=== PATIENT | male | born 1945 | race Caucasian/White ===

== ENCOUNTER 2021-10-10 09:47 | Outpatient (CLI) | payer MEDICARE, OTHER, SELFPAY | END 2021-10-10 09:48 | disposition home or self-care (01) | LOC: WOUND 09:51 | PROVIDERS: Visit Provider Surgery | DX: E11.621 Type 2 diabetes mellitus with foot ulcer (principal); L97.512 Non-pressure chronic ulcer of other part of right foot with fat layer exposed; L97.515 Non-pressure chronic ulcer of other part of right foot with muscle involvement without evidence of necrosis | CPT/HCPCS: 11042; 99214 ==

== ENCOUNTER 2021-10-16 10:21 | Outpatient (CLI) | payer MEDICARE, OTHER, SELFPAY ==
--- NOTE | 2021-10-16 10:45 | CRLHL7_ITS ---
For Patients: As a result of the Century Cures Act, medical imaging exams and procedure reports are released immediately into your electronic medical record. You may view this report before your referring provider. If you have questions, please contact your health care provider. Examination: Right lower extremity arterial Duplex ultrasound. Indication: Nonhealing ulcers on right leg. Status post angioplasty of right superficial femoral artery and peroneal artery on 07/18/2021 Technique: The right leg arteries were examined. Ultrasound performed using real-time centeno scale imaging (B-mode 2D), color-flow Doppler and spectral analysis. Comparison: Arterial ultrasound from 07/05/2021 Findings: Triphasic waveform in common femoral artery comparison to monophasic waveform in the superficial femoral artery and persists into the popliteal artery and runoff vessels. Between the distal superficial femoral artery and popliteal artery, there is a near doubling of the velocity (108 to 211 cm/sec) suggesting a 50 percent narrowing. Monophasic flow in the runoff vessels. Impression: 1. Near doubling of velocity between distal superficial femoral artery and popliteal artery successive 50 percent narrowing. No sonographic evidence of additional site of arterial stenosis. No arterial occlusion Dictated by Sarkis Woo MD @ 10/16/2021 3:56:56 PM (Electronically Signed)
== END 2021-10-16 10:22 | disposition home or self-care (01) ==
LOC: US 10:24
PROVIDERS: PCP Internal Medicine; Visit Provider Surgery
DX: I73.9 Peripheral vascular disease, unspecified (principal); Z98.890 Other specified postprocedural states
CPT/HCPCS: 93926

== ENCOUNTER 2021-10-17 09:20 | Outpatient (CLI) | payer MEDICARE, OTHER, SELFPAY | END 2021-10-17 09:21 | disposition home or self-care (01) | PROVIDERS: PCP Internal Medicine; Visit Provider Surgery | DX: E11.621 Type 2 diabetes mellitus with foot ulcer (principal); L97.512 Non-pressure chronic ulcer of other part of right foot with fat layer exposed; L97.515 Non-pressure chronic ulcer of other part of right foot with muscle involvement without evidence of necrosis | CPT/HCPCS: 97602 ==

== ENCOUNTER 2021-10-24 09:18 | Outpatient (CLI) | payer MEDICARE, OTHER, SELFPAY | END 2021-10-24 09:19 | disposition home or self-care (01) | LOC: WOUND 09:18 | PROVIDERS: PCP Internal Medicine; Visit Provider Surgery | DX: E11.621 Type 2 diabetes mellitus with foot ulcer (principal); L97.516 Non-pressure chronic ulcer of other part of right foot with bone involvement without evidence of necrosis; L97.412 Non-pressure chronic ulcer of right heel and midfoot with fat layer exposed | CPT/HCPCS: 97597 ==

== ENCOUNTER 2021-10-31 10:00 | Outpatient (CLI) | payer MEDICARE, OTHER, SELFPAY | END 2021-10-31 10:01 | disposition home or self-care (01) | LOC: WOUND 03-12 11:18 | PROVIDERS: PCP Family Medicine; Visit Provider Surgery | DX: E11.621 Type 2 diabetes mellitus with foot ulcer (principal); L97.416 Non-pressure chronic ulcer of right heel and midfoot with bone involvement without evidence of necrosis; Z79.84 Long term (current) use of oral hypoglycemic drugs | CPT/HCPCS: 97597 ==

== ENCOUNTER 2021-11-14 09:20 | Outpatient (CLI) | payer MEDICARE, OTHER, SELFPAY ==
--- NOTE | 2021-11-14 11:00 | CRLHL7_ITS ---
For Patients: As a result of the Century Cures Act, medical imaging exams and procedure reports are released immediately into your electronic medical record. You may view this report before your referring provider. If you have questions, please contact your health care provider. INDICATION: risk of barotrauma TECHNIQUE: Chest 2 views COMPARISON: 01/23/2012 FINDINGS: Cardiovascular and mediastinum: Postop changes of CABG. Stable appearance of the central pulmonary vessels. Vascular calcifications. Lungs and pleural spaces: Lungs are mildly hyperinflated. Mild atelectasis anterior lung base. No sign of infiltrate or mass. No sign of pleural effusion. No pneumothorax. Bones and soft tissues: No significant findings. IMPRESSION: Mild obstructive pulmonary physiology. No infiltrate or edema. Dictated by Kyrie Wilder MD @ 11/14/2021 11:14:46 AM (Electronically Signed)
== END 2021-11-14 09:21 | disposition home or self-care (01) ==
PROVIDERS: PCP Internal Medicine; Visit Provider Surgery
DX: E11.621 Type 2 diabetes mellitus with foot ulcer; Z79.84 Long term (current) use of oral hypoglycemic drugs; L97.416 Non-pressure chronic ulcer of right heel and midfoot with bone involvement without evidence of necrosis; L97.511 Non-pressure chronic ulcer of other part of right foot limited to breakdown of skin
CPT/HCPCS: 11042; 71046; 87070; 87186; 97597

== ENCOUNTER 2021-11-21 13:55 | Outpatient (CLI) | payer MEDICARE, OTHER, SELFPAY | END 2021-11-21 13:56 | disposition home or self-care (01) | PROVIDERS: PCP Internal Medicine; Visit Provider Surgery | DX: E11.621 Type 2 diabetes mellitus with foot ulcer (principal); L97.416 Non-pressure chronic ulcer of right heel and midfoot with bone involvement without evidence of necrosis; L97.514 Non-pressure chronic ulcer of other part of right foot with necrosis of bone; Z79.84 Long term (current) use of oral hypoglycemic drugs | CPT/HCPCS: 97597 ==

== ENCOUNTER 2021-11-28 08:23 | Outpatient (CLI) | payer MEDICARE, OTHER, SELFPAY | END 2021-11-28 08:24 | disposition home or self-care (01) | LOC: WOUND 08:24 | PROVIDERS: PCP Internal Medicine; Visit Provider Surgery | DX: E11.621 Type 2 diabetes mellitus with foot ulcer (principal); L97.416 Non-pressure chronic ulcer of right heel and midfoot with bone involvement without evidence of necrosis; Z79.84 Long term (current) use of oral hypoglycemic drugs; L97.513 Non-pressure chronic ulcer of other part of right foot with necrosis of muscle | CPT/HCPCS: 11042; 82962; 97597; G0277 ==

== ENCOUNTER 2021-12-05 08:19 | Outpatient (CLI) | payer MEDICARE, OTHER, SELFPAY | END 2021-12-05 08:20 | disposition home or self-care (01) | PROVIDERS: PCP Internal Medicine; Visit Provider Surgery | DX: E11.621 Type 2 diabetes mellitus with foot ulcer (principal); L97.416 Non-pressure chronic ulcer of right heel and midfoot with bone involvement without evidence of necrosis | CPT/HCPCS: 82962; 99214; G0277 ==

== ENCOUNTER 2021-12-12 07:53 | Outpatient (CLI) | payer MEDICARE, OTHER, SELFPAY | END 2021-12-12 07:54 | disposition home or self-care (01) | LOC: WOUND 07:53 | PROVIDERS: PCP Internal Medicine; Visit Provider Nurse Practitioner Family | DX: E11.621 Type 2 diabetes mellitus with foot ulcer (principal); L97.416 Non-pressure chronic ulcer of right heel and midfoot with bone involvement without evidence of necrosis; L97.514 Non-pressure chronic ulcer of other part of right foot with necrosis of bone | CPT/HCPCS: 11042; 11043; 82962; G0277 ==

== ENCOUNTER 2021-12-14 14:30 | Outpatient (CLI) | payer MEDICARE, OTHER, SELFPAY | END 2021-12-14 14:31 | disposition home or self-care (01) | LOC: WOUND 03-12 14:39 | PROVIDERS: PCP Family Medicine; Visit Provider Surgery | DX: E11.621 Type 2 diabetes mellitus with foot ulcer (principal); L97.416 Non-pressure chronic ulcer of right heel and midfoot with bone involvement without evidence of necrosis | CPT/HCPCS: 29581 ==

== ENCOUNTER 2021-12-14 14:58 | Outpatient (CLI) | payer MEDICARE, OTHER, SELFPAY ==
--- NOTE | 2021-12-14 15:30 | CRLHL7_ITS ---
For Patients: As a result of the Century Cures Act, medical imaging exams and procedure reports are released immediately into your electronic medical record. You may view this report before your referring provider. If you have questions, please contact your health care provider. EXAM: MRI of the right foot without contrast. CLINICAL INDICATION: Chronic fore foot wound. PRIOR SURGERY: Partial 1st toe amputation. COMPARISON PLAIN FILMS: None available. COMPARISON CROSS-SECTIONAL IMAGING STUDIES: None available. TECHNICAL: Axial, sagittal and coronal T1, PD and STIR images. 1.5 Lizzy MR scanner. FINDINGS: Postsurgical change of 1st toe amputation through the proximal 1st metatarsal. Bone marrow edema in the residual 1st metatarsal base with grossly preserved T1 hyperintense signal. Erosion or resection of the distal aspect of the 5th proximal phalanx with T1 hypointense bone marrow signal (see series 6, image 19 and 20). Second through 5th toe hammertoe deformities. Subluxation of 2nd and 3rd MTP joints. T1 hyperintense bone marrow signal is grossly preserved throughout the remainder of the bones in the forefoot and visualized midfoot. Severe degenerative change at the tarsometatarsal joints likely neuropathic arthropathy. Mild scattered bone marrow edema at tarsometatarsal articulations due to degenerative change. Diffuse subcutaneous soft tissue swelling and induration throughout the foot. No definite organized fluid collection within limits of noncontrast exam. Atrophy of the intrinsic musculature of the foot with STIR hyperintense signal most likely due to denervation. No definite evidence of tendon injury. IMPRESSION: 1. Erosion or resection of the 5th proximal phalanx distal aspect with marrow replacement. If no prior surgery the findings would be consistent with osteomyelitis. 2. Amputation of the 1st toe through the proximal metatarsal. Reactive bone marrow edema in the residual metatarsal base with no evidence of osteomyelitis. 3. Diffuse soft tissue swelling and soft tissue induration throughout the forefoot correlate for cellulitis. No evidence of abscess within limits of noncontrast exam. 4. 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 5. The flexion deformities and subluxations in the 2nd through 5th toes. 6. Intrinsic foot muscle atrophy with edema most likely due to denervation. Dictated by Wesley Bui MD @ 12/17/2021 11:22:34 AM (Electronically Signed)
== END 2021-12-14 14:59 | disposition home or self-care (01) ==
LOC: MRI 14:59
PROVIDERS: PCP Family Medicine; Visit Provider Surgery
DX: S91.301A Unspecified open wound, right foot, initial encounter (principal); R22.41 Localized swelling, mass and lump, right lower limb
CPT/HCPCS: 29581; 73718

== ENCOUNTER 2021-12-18 08:00 | Outpatient (RCR) | payer MEDICARE, OTHER, SELFPAY | END 2021-12-24 23:59 | disposition home or self-care (01) | LOC: WOUND 08:00 | PROVIDERS: PCP Internal Medicine; Visit Provider Nurse Practitioner Family | DX: E11.621 Type 2 diabetes mellitus with foot ulcer (principal); L97.416 Non-pressure chronic ulcer of right heel and midfoot with bone involvement without evidence of necrosis; Z79.84 Long term (current) use of oral hypoglycemic drugs | CPT/HCPCS: 82962; G0277 ==

== ENCOUNTER 2021-12-19 10:55 | Outpatient (CLI) | payer MEDICARE, OTHER, SELFPAY | END 2021-12-19 10:56 | disposition home or self-care (01) | PROVIDERS: PCP Family Medicine; Visit Provider Nurse Practitioner Family | DX: E11.621 Type 2 diabetes mellitus with foot ulcer (principal); L97.416 Non-pressure chronic ulcer of right heel and midfoot with bone involvement without evidence of necrosis; Z79.84 Long term (current) use of oral hypoglycemic drugs | CPT/HCPCS: 82962; 97597; G0277 ==

== ENCOUNTER 2021-12-24 19:58 | Inpatient (IN) | payer MEDICARE, OTHER, SELFPAY ==
[2021-12-24] VITALS (16 sets, daily range): BP systolic 136–162; BP diastolic 43–79; PULSE 68–81; RESP 16–18; TEMP 35.8–36.9; O2SAT 90–100; BMI 30.8
--- NOTE | 2021-12-24 11:14 | CRLHL7_ITS ---
For Patients: As a result of the Century Cures Act, medical imaging exams and procedure reports are released immediately into your electronic medical record. You may view this report before your referring provider. If you have questions, please contact your health care provider. Indication: right transmetatarsal amputation foot Technique: Two fluoroscopic images of the right foot. Fluoroscopic time 16.4 seconds. IMPRESSION: Fluoroscopic guidance for transmetatarsal amputation. Dictated by Kyrie Wilder MD @ 12/25/2021 9:15:03 AM (Electronically Signed)
[2021-12-24] MEDS: SODIUM CHLORIDE 0.9 % (FLUSH) 10 ML SYRINGE IVF (11:30)
[2021-12-24] MEDS: LACTATED RINGERS 1000 ML 1,000 ML 100 ML IV ×2 (11:30→15:36)
[2021-12-24] MEDS: CEFAZOLIN 2 GM INJ IVP (12:10)
[2021-12-24] MEDS: BUPIVACAINE 0.5% 30 ML INJECTION (12:15)
--- NOTE | 2021-12-24 13:37 | PC.SOCIAL ---
Addendum entered by ABIMAEL Hernández 12/24/21 13:51: [facility] have no openings. [facility] in [place] may have a bed on Fri. [facility] has openings. A message was left with Yuly Huang in [facility]. Original Note: Met with pt. and spouse to answer questions about discharge planning. Pt. already has [facility] in place. Pt.'s spouse feels pt. will need more at discharge than home care and wants to pursue a SNF for short-term rehab in [place]. Explained the shortages in beds. Spouse would like any SNF in the area that has good ratings. Pt. has been to [facility] in the past. A message was left with the [facility] in [place] on bed availability. No beds are available at the [facility] or the [facility]. A message was left with [facility] on bed availability.
--- NOTE | 2021-12-24 14:26 | W.ANESCHARGE ---
Anesthesia Charges Start Date/Time Anesthesia Start Date: 12/24/21 Anesthesia Start Time: 11:58 Stop Date/Time Anesthesia Stop Date: 12/24/21 Anesthesia Stop Time: 14:23 Summary Emergency: No Extremes of Age: Over 68-CPT 68670
--- NOTE | 2021-12-24 14:29 | P.GSOP_ITS ---
Operative Note Date of procedure: 12/24/21 Type of Procedure: 1. Transmetatarsal amputation right foot Procedure Description: Preoperative diagnosis: Osteomyelitis right foot, nonhealing diabetic ulcer right foot Postoperative diagnosis: Osteomyelitis right foot, nonhealing diabetic ulcer right foot After discussing the risks and benefits of the procedure, the patient signed informed consent.? The operative site was marked and the patient was brought to the operating room and placed on the operating table in supine position.? Care was taken to pad the patient's pressure points.?? The patient was then given sedation by anesthesia and I injected 30 mL 0.5% bupivacaine plain into the foot.?? The operative site was then prepped and draped in the usual sterile fashion.? A time-out was then performed. The right foot was exsanguinated and the tourniquet inflated. Initial incision started medially proximal to the ulcer over the 1st metatarsal base. The incision was made to excise the ulceration with the dorsal arm of the incision coursing distal and then transversely across the dorsal foot ending lateral at the 5th metatarsal base. Plantar portion of the incision was taken distal and then transversely across the foot proximal the plantar ulcer meeting the other incision laterally. The ulcer was excised and the 1st metatarsal base exposed. The base was disarticulated from the medial cuneiform and removed in total and sent to pathology. The dorsal incision was taken down to bone and a a periosteal elevator was used to elevate the periosteum proximal along the metatarsal shafts to the base of metatarsals 2, 3, 4 and 5. Incision plantarly was taken to bone and the periosteum was elevated proximal on the plantar side as well. Next a sagittal saw was used to make transverse cut across metatarsals 2, 3, 4 and 5. C-arm was used for guidance on placement. The forefoot was then removed in total and discarded. Bone cuts were carefully remodeled as was the medial cuneiform and final C-arm images confirmed excellent alignment. Wound wa s irrigated with 1000 mL normal sterile saline. No necrotic tissue was evident. All exposed bone appeared healthy and viable. The tourniquet was released and all bleeding vessels cauterized. Flaps were brought together under minimal tension and sutured with 2-0 Vicryl to pull the subcutaneous tissues together. Skin was closed with combination of 2-0 and 3-0 nylon using retention sutures and simple sutures. FANY drain was placed prior to closure. Sterile dressings were then applied. Well-padded Ortho Glass posterior splint applied. ? The patient was then woken and transported to the recovery area in stable condition. The patient tolerated the procedure well. He will be admitted to the hospital for antibiotics and monitoring of blood loss. He will need transitional care placement. Findings: No complications apparent. First metatarsal base sent to pathology. Anesthesia: MAC and local Surgeon: Norberto Ewing DPM Estimated blood loss (mL): 20 Condition: stable Disposition: PACU
--- NOTE | 2021-12-24 14:34 | W.ANESCHARGE ---
Anesthesia Charges Start Date/Time Anesthesia Start Date: 12/24/21 Anesthesia Start Time: 11:58 Stop Date/Time Anesthesia Stop Date: 12/24/21 Anesthesia Stop Time: 14:23 Summary Emergency: No Extremes of Age: Over 68-CPT 23919
--- NOTE | 2021-12-24 16:59 | PM.IMHP1 ---
Hospitalist- H&P: HPI History of Present Illness Date Seen: 12/24/21 Chief complaint: surgery Narrative: Elieser Fam is a 76 year old male presented to the hospital today for a transmetatarsal foot amputation of the right foot with Dr. Ewing of podiatry, performed for osteomyelitis. There were no surgical or anesthetic complications during the procedure. Patient has a long history of foot infections/wounds, with comorbidities of type 2 diabetes and severe peripheral vascular disease. He is followed as an outpatient by our wound clinic, and has been treated in the hyperbaric chamber as well. Most recent wound culture was collected in October and was positive for Enterococcus, sensitive to ampicillin, and he has been on Augmentin recently. In July of 2021, wound culture grew out multiple organisms including E coli, Corynebacterium, and stenotrophomonas. Patient's history of CVA with resultant poor balance, in addition to significant peripheral neuropathy, will limit his ability to discharge home following procedure. He needs to be nonweightbearing on his right lower extremity. He had a previous toe amputation that required a SNF stay postoperatively. Other past medical and surgical history have been updated in tabs below. Patient and have no concerns for the hospitalist team. 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 He smoked until 2017. No concerning ETOH use. Requests Full Code status. 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 Cerebrovascular accident (CVA) due to thrombosis of left middle cerebral artery Chronic back pain COPD (chronic obstructive pulmonary disease) DDD (degenerative disc disease) Diabetes mellitus type 2, noninsulin dependent Essential hypertension GERD (gastroesophageal reflux disease) Hyperlipidemia Hypertensive heart disease without heart failure Hypertriglyceridemia NEGRA (obstructive sleep apnea) Peripheral vascular disease Surgical History (Updated 12/24/21 @ 19:29 by Chyna Reyes MD) History of coronary artery stent placement Hx of CABG S/P rotator cuff repair S/P transmetatarsal amputation of foot Social History Smoking Status: Never smoker How often do you have a drink containing alcohol: never AUDIT-C Alcohol total score: 0 Non-prescribed substance use: denies use Caffeine: Yes Meds Home Medications and Allergies Home Medications Medication Instructions Recorded Confirmed Type albuterol sulfate 90 mcg/actuation 2 puff inhalation Q4H 11/08/21 12/24/21 History aerosol inhaler ammonium lactate 12 % lotion 1 applic topical DAILY 11/08/21 12/24/21 History atorvastatin 40 mg tablet 40 mg PO DAILY 11/08/21 12/24/21 History blood sugar diagnostic (Accu-Chek #10 ea 11/08/21 12/24/21 History Elise Plus test strips) clopidogrel 75 mg tablet 75 mg PO DAILY 11/08/21 12/24/21 History collagenase clostridium histo. 250 1 applic topical DAILY 11/08/21 12/24/21 History unit/gram topical ointment (Santyl) duloxetine 20 mg capsule,delayed 20 mg PO DAILY 11/08/21 12/24/21 History release furosemide 40 mg tablet 20 mg PO DAILY 11/08/21 12/24/21 History gabapentin 100 mg capsule 100 mg PO TID 11/08/21 12/24/21 History glipizide 10 mg tablet 5 mg PO DAILY 11/08/21 12/24/21 History icosapent ethyl 1 gram capsule 2 g PO BIDWM 11/08/21 12/24/21 History losartan 25 mg tablet 25 mg PO DAILY 11/08/21 12/24/21 History metformin 500 mg tablet,extended 1,000 mg PO BIDWM 11/08/21 12/24/21 History release 24 hr metoprolol tartrate 25 mg tablet 12.5 mg PO BID 11/08/21 12/24/21 History pantoprazole 40 mg tablet,delayed 40 mg PO DAILY 11/08/21 12/24/21 History release tamsulosin 0.4 mg capsule 0.4 mg PO DAILY 11/08/21 12/24/21 History aspirin 81 mg capsule 81 mg PO DAILY 12/24/21 12/24/21 History latanoprost 0.005 % eye drops 1 drp ophthalmic (eye-right) HS 12/24/21 12/24/21 History Allergies Allergy/AdvReac Type Severity Reaction Status Date / Time lisinopril Allergy Mild Cough Verified 10/31/22 10:24 Exam Narrative: Exam Narrative: GEN: Alert and oriented, laying comfortably in bed answering questions appropriately CV: Rate controlled atrial fibrillation, no concerning murmurs R: LCTA bilaterally without concerning wheezing, rales, or rhonchi Ext: Right lower extremity is wrapped, bloody drainage is noted in postop drain Skin: Scattered SKs, no other concerning skin lesions or rashes on exposed skin Neuro: Nonfocal, no resting tremor Psych: Appropriate Const: Vital Signs, click to edit/add: Vital Signs - 24 hr 12/24/21 11:15 12/24/21 14:30 12/24/21 14:45 Temperature 97 F L 97.6 F Pulse Rate 70 69 68 Respiratory Rate 16 16 16 Blood Pressure 149/70 H 145/76 H 157/75 H Pulse Oximetry 95 92 99 Oxygen Delivery Me thod Room Air Non Rebreather Mas k Oxygen Flow Rate 2 2 12/24/21 15:00 Temperature Pulse Rate 70 Respiratory Rate 18 Blood Pressure 154/67 H Pulse Oximetry 100 Oxygen Delivery Me thod Nasal Cannula Oxygen Flow Rate 2 Assessment and Plan Assessment and plan (1) Osteomyelitis: Status: Acute Assessment and Plan: - offending bone surgically removed today - will continue IV Unasyn postoperatively, likely will be able to discharge on p.o. antibiotics given surgical treatment (2) S/P transmetatarsal amputation of foot: Problem comment: 12/24/2021 Status: Acute (3) Atrial fibrillation: Problem comment: on ASA Status: Acute Assessment and Plan: - rate controlled (4) Diabetes mellitus type 2, noninsulin dependent: Problem comment: last A1C 7.6 Status: Acute Assessment and Plan: - Accu-Cheks ordered to assess need for sliding scale insulin (5) COPD (chronic obstructive pulmonary disease): Status: Acute Assessment and Plan: - quiescent, not on supplemental oxygen (6) Peripheral vascular disease: Problem comment: on plavix Status: Acute (7) Cerebrovascular accident (CVA) due to thrombosis of left middle cerebral artery: Status: Acute Assessment and Plan: - persistently poor balance, no other focal deficits. PT and OT ordered; patient is to be not weight-bearing on right lower extremity. After 1-2 days, will be able to pivot transfer to commode and wheelchair Plan - per above - aspirin and Plavix for prophylaxis
[2021-12-24] MEDS: AMPICILLIN/SULBACTAM 3 GM in 0.9 % SODIUM CHLORIDE Mini-bag 100 ML IVPB ×2 (17:00→22:47)
[2021-12-24] MEDS: METFORMIN ER 500 MG 1000 MG PO (18:26)
[2021-12-24] MEDS: LACTOBACILLUS ACIDOPHILUS 1 TABLET 2 TAB PO (18:26)
[2021-12-24] MEDS: LATANOPROST 0.005% OPHTH 1 DROP EYE-RIGHT (21:02)
[2021-12-24] MEDS: METOPROLOL TARTRATE 25 MG TABLET 12.5 MG PO (21:02)
[2021-12-24] MEDS: ATORVASTATIN CALCIUM 40 MG TABLET PO (21:02)
[2021-12-24] MEDS: GABAPENTIN 100 MG CAPSULE PO (21:03)
--- NOTE | 2021-12-24 23:59 | PC.NURSE ---
VSS AND AFEBRILE. DRESSING TO RIGHT FOOT CDI AND ELEVATED ON 2 PILLOWS. FANY DRAIN WITH BLOODY DRAINAGE. TOLERATING REGULAR DIET WITH NO C/O N/V. PATIENT DENIES PAIN.
[2021-12-25] MEDS: MELATONIN 3 MG TABLET 6 MG PO ×2 (00:08→19:59)
[2021-12-25 03:00] VITALS: BP 97/30; PULSE 90; RESP 20; TEMP 37.4; O2SAT 90
[2021-12-25] MEDS: AMPICILLIN/SULBACTAM 3 GM in 0.9 % SODIUM CHLORIDE Mini-bag 100 ML IVPB ×4 (04:46→23:17)
--- NOTE | 2021-12-25 04:54 | PC.NURSE ---
[id number] Pt rested well during night, stood at beside x1 NWB to RLE, walker, and 1 assist, tolerated activity fair. denies Pain to RLE, helped pt repositiong throughout night, uses urinal and call light appropriately.
[2021-12-25] MEDS: OMEPRAZOLE 20 MG CAPSULE DR 40 MG PO (06:34)
[2021-12-25 07:00] VITALS: BP 141/60; PULSE 93; PULSE 97; RESP 20; TEMP 37.2; O2SAT 93
[2021-12-25 07:11] LABS: Albumin* 3.9 g/dL (3.3-5.0); Chloride* 104 mmol/L (96-114); Potassium* 4.7 mmol/L (3.6-5.1); Sodium* 140 mmol/L (135-149)
[2021-12-25 07:13] LABS: Bilirubin Total* 0.5 mg/dL (0.1-1.5); Estimated Glomerular Filt Rate 77 ml/min
[2021-12-25 07:14] LABS: Alanine Aminotransferase* 22 U/L (4-50); Alkaline Phosphatase* 80 U/L (40-150); Aspartate Amino Transferase* 23 U/L (12-35); Blood Urea Nitrogen* 23 mg/dL (7-30); Carbon Dioxide* 22 mmol/L (20-32); Total Protein* 6.6 g/dL (6.0-8.3)
[2021-12-25 07:15] LABS: Calcium* 9.3 mg/dL (8.4-10.6); Glucose* 132 mg/dL (60-115)
[2021-12-25 07:17] LABS: Basophils Absolute Auto 0.05 K/uL (0.00-0.30); Basophils Percent Auto 0.5 % (0.0-3.0); Eosinophils Absolute Auto 0.07 K/uL (0.00-0.50); Eosinophils Percent Auto 0.7 % (0.0-7.0); Hemoglobin* 12.5 gm/dL (13.5-17.5); Immature Granulocytes Abs Auto 0.06 K/uL (0.00-0.30); Lymphocytes Percent Auto 13.4 % (20-44); Mean Corpuscular HGB Conc 33 gm/dL (32-36); Mean Corpuscular Hemoglobin 28 pg (26-34); Mean Corpuscular Volume 84 fL (80-100); Monocytes Percent Auto 9.5 % (0.0-11.0); Neutrophils Percent Auto 75.3 % (42.0-72.0); Platelet Count* 294 K/uL (140-440); RDW Coefficient of Variation % 14.7 % (11.5-15.5); Red Blood Count 4.51 m/uL (4.30-5.90); White Blood Count* 10.58 K/uL (4.50-11.00)
[2021-12-25 07:18] LABS: Slide Review Reflex No
[2021-12-25] MEDS: METFORMIN ER 500 MG 1000 MG PO ×2 (08:05→19:58)
[2021-12-25] MEDS: LACTOBACILLUS ACIDOPHILUS 1 TABLET 2 TAB PO ×3 (08:05→19:55)
[2021-12-25] MEDS: glipiZIDE 5 MG TABLET PO (08:05)
[2021-12-25] MEDS: ASPIRIN 81 MG TABLET EC PO (09:12)
[2021-12-25] MEDS: TAMSULOSIN HCL 0.4 MG CAPSULE PO (09:12)
[2021-12-25] MEDS: DULOXETINE HCL 20 MG CAPSULE DR PO (09:12)
[2021-12-25] MEDS: CLOPIDOGREL 75 MG TABLET PO (09:12)
[2021-12-25] MEDS: METOPROLOL TARTRATE 25 MG TABLET 12.5 MG PO ×2 (09:12→19:56)
[2021-12-25] MEDS: LOSARTAN POTASSIUM 50 MG TABLET 25 MG PO (09:13)
[2021-12-25] MEDS: FUROSEMIDE 20 MG TABLET PO (09:14)
[2021-12-25] MEDS: GABAPENTIN 100 MG CAPSULE PO ×3 (09:14→19:59)
[2021-12-25 11:00] VITALS: BP 138/53; PULSE 93; RESP 20; TEMP 36.8; O2SAT 93
--- NOTE | 2021-12-25 12:44 | W.PM.PODPN ---
Podiatry-PN: Subj Subjective Time Seen by Provider: 12:30 Date Seen: 12/25/21 Interval history: Patient seen bedside postop day 1 following transmetatarsal amputation right foot. He is doing well without complaints. He is resting comfortably. Has no complaints of pain. He has been maintaining nonweightbearing status. Progress Note: A&P Assessment and plan (1) S/P transmetatarsal amputation of foot: Problem details: 12/24/2021 Status: Acute (2) Osteomyelitis: Status: Acute Plan S/p transmetatarsal amputation right foot postop day 1. Discussed the plan with patient and his today. Drain output is still more than I would like. Plan on removing the drain tomorrow and changing the dressing in the a.m.. I would anticipate that point he could then transferred to nursing facility. Continue nonweightbearing to the right leg. Continue antibiotics. Exam Narrative: Exam Narrative: Right foot with splint in place. Dressings are intact with no strike through. Drain in place and functioning well. Drain output last shift 50 mL. Const: Vital Signs, click to edit/add: Vital Signs - 24 hr 12/24/21 14:30 12/24/21 14:45 12/24/21 15:00 Temperature 97.6 F Pulse Rate 69 68 70 Pulse Rate [Pulse Oximeter] Respiratory Rate 16 16 18 Blood Pressure 145/76 H 157/75 H 154/67 H Blood Pressure [Le ft Arm] Blood Pressure [Ri ght Arm] Pulse Oximetry 92 99 100 Oxygen Delivery Me thod Non Rebreather Mas k Nasal Cannula Oxygen Flow Rate 2 2 2 12/24/21 16:00 12/24/21 16:15 12/24/21 16:30 Temperature 96.7 F L 96.5 F L Pulse Rate 76 Pulse Rate [Pulse Oximeter] 74 75 Respiratory Rate 18 18 18 Blood Pressure Blood Pressure [Le ft Arm] 160/68 H 162/75 H 153/74 H Blood Pressure [Ri ght Arm] Pulse Oximetry 97 96 Oxygen Delivery Me thod Room Air Room Air Oxygen Flow Rate 12/24/21 20:00 12/24/21 21:00 12/24/21 16:45 Temperature 97.5 F L 97 F L Pulse Rate Pulse Rate [Pulse Oximeter] 79 74 77 Respiratory Rate 18 18 18 Blood Pressure Blood Pressure [Le ft Arm] 157/71 H 154/76 H 158/74 H Blood Pressure [Ri ght Arm] Pulse Oximetry 96 96 96 Oxygen Delivery Me thod Room Air Room Air Room Air Oxygen Flow Rate 12/24/21 17:00 12/24/21 17:30 12/24/21 18:00 Temperature 97 F L 97.3 F L Pulse Rate Pulse Rate [Pulse Oximeter] 81 70 79 Respiratory Rate 18 18 18 Blood Pressure Blood Pressure [Le ft Arm] 136/78 156/70 H 144/78 H Blood Pressure [Ri ght Arm] Pulse Oximetry 96 96 96 Oxygen Delivery Me thod Room Air Room Air Room Air Oxygen Flow Rate 12/24/21 19:00 12/24/21 22:00 12/24/21 23:00 Temperature 97.3 F L 97.8 F 98.5 F Pulse Rate Pulse Rate [Pulse Oximeter] 80 81 79 Respiratory Rate 18 18 18 Blood Pressure Blood Pressure [Le ft Arm] 151/78 H 154/79 H Blood Pressure [Ri ght Arm] 144/43 H Pulse Oximetry 97 96 90 Oxygen Delivery Me thod Room Air Room Air Room Air Oxygen Flow Rate 12/25/21 03:00 12/25/21 07:00 12/25/21 07:00 Temperature 99.4 F 98.9 F Pulse Rate Pulse Rate [Pulse Oximeter] 90 93 97 Respiratory Rate 20 20 Blood Pressure Blood Pressure [Le ft Arm] Blood Pressure [Ri ght Arm] 97/30 L 141/60 H Pulse Oximetry 90 93 Oxygen Delivery Me thod Room Air Room Air Oxygen Flow Rate 0 12/25/21 11:00 Temperature 98.2 F Pulse Rate Pulse Rate [Pulse Oximeter] 93 Respiratory Rate 20 Blood Pressure Blood Pressure [Le ft Arm] Blood Pressure [Ri ght Arm] 138/53 L Pulse Oximetry 93 Oxygen Delivery Me thod Room Air Oxygen Flow Rate 0 Podiatry-PN: Obj Labs Labs: Laboratory Results - last 24 hr 12/25/21 12/25/21 06:02 06:02 WBC 10.58 RBC 4.51 Hgb 12.5 L Hct 38.0 MCV 84 MCH 28 MCHC 33 RDW Coeff of Braeden 14.7 Plt Count 294 Neut % (Auto) 75.3 H Lymph % (Auto) 13.4 L [place] % (Auto) 9.5 Eos % (Auto) 0.7 Baso % (Auto) 0.5 Neut # (Auto) 8.00 H Lymph # (Auto) 1.40 [place] # (Auto) 1.00 H Eos # (Auto) 0.07 Baso # (Auto) 0.05 Abs Immat Gran (auto) 0.06 Sodium 140 Potassium 4.7 Chloride 104 Carbon Dioxide 22 BUN 23 Creatinine 1.0 Estimated Creat Clear 58.90 Estimated GFR 77 Glucose 132 H Calcium 9.3 Total Bilirubin 0.5 AST 23 ALT 22 Alkaline Phosphatase 80 C-Reactive Protein 3.0 H Total Protein 6.6 Albumin 3.9
--- NOTE | 2021-12-25 13:31 | PC.SOCIAL ---
Pt. has been accepted to [facility] for tomorrow. [facility] transport is set up for 1pm admit. Pt. is pleased with this plan.
--- NOTE | 2021-12-25 13:57 | P.IMPN_ITS ---
Progress Note: A&P Assessment and plan (1) S/P transmetatarsal amputation of foot: Problem details: 12/24/2021 Status: Acute Assessment and Plan: - doing well, plans for SNF upon discharge. Will need to have drain taken out by Dr. Ewing prior to d/c (this can be removed when <30mL output in 24 hours) (2) Osteomyelitis: Status: Acute Assessment and Plan: - continue Unasyn while inpatient, will transition to po antibiotics upon discharge given surgical resolution of osteomyelitis (3) Diabetes mellitus type 2, noninsulin dependent: Problem details: last A1C 7.6 Status: Acute Assessment and Plan: - continue Accu-Cheks and sliding scale insulin, as well as home medications (4) Atrial fibrillation: Problem details: Paroxysmal, on ASA Status: Acute Assessment and Plan: - quiescent, sinus rhythm (5) COPD (chronic obstructive pulmonary disease): Status: Acute Assessment and Plan: - quiescent (6) Peripheral vascular disease: Problem details: on plavix Status: Acute Assessment and Plan: - baseline (7) Cerebrovascular accident (CVA) due to thrombosis of left middle cerebral artery: Status: Acute Assessment and Plan: - residual deficit of poor balance, working with therapies Plan - per above Subjective Date Seen: 12/25/21 Interval history: No acute events overnight. Patient and no concerns for hospitalist team this morning. Exam Narrative: Exam Narrative: GEN: Alert and oriented, sitting comfortably in bedside chair and speaking in full sentences HEENT: Normal external ears, EOMIs bilaterally CV: Regular rate and rhythm, not in AFib during my exam, No concerning murmurs, rubs, or gallops R: LCTA bilaterally without concerning wheezing, rales, or rhonchi Ext: Right lower extremity is wrapped, bloody fluid without concerning features noted in drain Skin: No concerning skin lesions or rashes on exposed skin Neuro: Nonfocal Psych: Appropriate Const: Vital Signs, click to edit/add: Vital Signs - 24 hr 12/24/21 14:30 12/24/21 14:45 12/24/21 15:00 Temperature 97.6 F Pulse Rate 69 68 70 Pulse Rate [Pulse Oximeter] Respiratory Rate 16 16 18 Blood Pressure 145/76 H 157/75 H 154/67 H Blood Pressure [Le ft Arm] Blood Pressure [Ri ght Arm] Pulse Oximetry 92 99 100 Oxygen Delivery Me thod Non Rebreather Mas k Nasal Cannula Oxygen Flow Rate 2 2 2 12/24/21 16:00 12/24/21 16:15 12/24/21 16:30 Temperature 96.7 F L 96.5 F L Pulse Rate 76 Pulse Rate [Pulse Oximeter] 74 75 Respiratory Rate 18 18 18 Blood Pressure Blood Pressure [Le ft Arm] 160/68 H 162/75 H 153/74 H Blood Pressure [Ri ght Arm] Pulse Oximetry 97 96 Oxygen Delivery Me thod Room Air Room Air Oxygen Flow Rate 12/24/21 20:00 12/24/21 21:00 12/24/21 16:45 Temperature 97.5 F L 97 F L Pulse Rate Pulse Rate [Pulse Oximeter] 79 74 77 Respiratory Rate 18 18 18 Blood Pressure Blood Pressure [Le ft Arm] 157/71 H 154/76 H 158/74 H Blood Pressure [Ri ght Arm] Pulse Oximetry 96 96 96 Oxygen Delivery Me thod Room Air Room Air Room Air Oxygen Flow Rate 12/24/21 17:00 12/24/21 17:30 12/24/21 18:00 Temperature 97 F L 97.3 F L Pulse Rate Pulse Rate [Pulse Oximeter] 81 70 79 Respiratory Rate 18 18 18 Blood Pressure Blood Pressure [Le ft Arm] 136/78 156/70 H 144/78 H Blood Pressure [Ri ght Arm] Pulse Oximetry 96 96 96 Oxygen Delivery Me thod Room Air Room Air Room Air Oxygen Flow Rate 12/24/21 19:00 12/24/21 22:00 12/24/21 23:00 Temperature 97.3 F L 97.8 F 98.5 F Pulse Rate Pulse Rate [Pulse Oximeter] 80 81 79 Respiratory Rate 18 18 18 Blood Pressure Blood Pressure [Le ft Arm] 151/78 H 154/79 H Blood Pressure [Ri ght Arm] 144/43 H Pulse Oximetry 97 96 90 Oxygen Delivery Me thod Room Air Room Air Room Air Oxygen Flow Rate 12/25/21 03:00 12/25/21 07:00 12/25/21 07:00 Temperature 99.4 F 98.9 F Pulse Rate Pulse Rate [Pulse Oximeter] 90 93 97 Respiratory Rate 20 20 Blood Pressure Blood Pressure [Le ft Arm] Blood Pressure [Ri ght Arm] 97/30 L 141/60 H Pulse Oximetry 90 93 Oxygen Delivery Me thod Room Air Room Air Oxygen Flow Rate 0 12/25/21 11:00 Temperature 98.2 F Pulse Rate Pulse Rate [Pulse Oximeter] 93 Respiratory Rate 20 Blood Pressure Blood Pressure [Le ft Arm] Blood Pressure [Ri ght Arm] 138/53 L Pulse Oximetry 93 Oxygen Delivery Me thod Room Air Oxygen Flow Rate 0 Labs Labs: Laboratory Results - last 24 hr 12/25/21 12/25/21 06:02 06:02 WBC 10.58 RBC 4.51 Hgb 12.5 L Hct 38.0 MCV 84 MCH 28 MCHC 33 RDW Coeff of Braeden 14.7 Plt Count 294 Neut % (Auto) 75.3 H Lymph % (Auto) 13.4 L [place] % (Auto) 9.5 Eos % (Auto) 0.7 Baso % (Auto) 0.5 Neut # (Auto) 8.00 H Lymph # (Auto) 1.40 [place] # (Auto) 1.00 H Eos # (Auto) 0.07 Baso # (Auto) 0.05 Abs Immat Gran (auto) 0.06 Sodium 140 Potassium 4.7 Chloride 104 Carbon Dioxide 22 BUN 23 Creatinine 1.0 Estimated Creat Clear 58.90 Estimated GFR 77 Glucose 132 H Calcium 9.3 Total Bilirubin 0.5 AST 23 ALT 22 Alkaline Phosphatase 80 C-Reactive Protein 3.0 H Total Protein 6.6 Albumin 3.9
[2021-12-25 15:00] VITALS: BP 136/54; PULSE 88; RESP 18; TEMP 37.1; O2SAT 91
[2021-12-25 19:00] VITALS: BP 144/71; PULSE 88; RESP 18; TEMP 37.1; O2SAT 91
[2021-12-25] MEDS: ATORVASTATIN CALCIUM 40 MG TABLET PO (19:57)
[2021-12-25] MEDS: LATANOPROST 0.005% OPHTH 1 DROP EYE-RIGHT (20:09)
[2021-12-25 23:00] VITALS: BP 146/63; PULSE 86; RESP 20; TEMP 36.8; O2SAT 90
[2021-12-26 02:46] VITALS: BP 137/35; PULSE 80; RESP 20; TEMP 36.8; O2SAT 89
[2021-12-26] MEDS: AMPICILLIN/SULBACTAM 3 GM in 0.9 % SODIUM CHLORIDE Mini-bag 100 ML IVPB (05:08)
--- NOTE | 2021-12-26 05:27 | PC.NURSE ---
[id number] Pt slept well during night, denied pain. FANY drain output total for noc shift is 15ml. dressing to RLE, C/D/I.
[2021-12-26 06:23] LABS: Basophils Absolute Auto 0.06 K/uL (0.00-0.30); Basophils Percent Auto 0.6 % (0.0-3.0); Hematocrit 35.9 % (37.0-53.0); Hemoglobin* 11.9 gm/dL (13.5-17.5); Immature Granulocytes Abs Auto 0.06 K/uL (0.00-0.30); Lymphocytes Percent Auto 18.4 % (20-44); Mean Corpuscular HGB Conc 33 gm/dL (32-36); Mean Corpuscular Hemoglobin 28 pg (26-34); Mean Corpuscular Volume 84 fL (80-100); Monocytes Percent Auto 10.7 % (0.0-11.0); Neutrophils Absolute Auto 7.08 K/uL (1.7-7.0); Neutrophils Percent Auto 68.7 % (42.0-72.0); Platelet Count* 287 K/uL (140-440); RDW Coefficient of Variation % 14.7 % (11.5-15.5); Red Blood Count 4.28 m/uL (4.30-5.90); White Blood Count* 10.29 K/uL (4.50-11.00)
[2021-12-26] MEDS: OMEPRAZOLE 20 MG CAPSULE DR 40 MG PO (06:30)
[2021-12-26 06:33] LABS: Slide Review Reflex No
[2021-12-26 06:36] LABS: Chloride* 103 mmol/L (96-114); Sodium* 139 mmol/L (135-149)
[2021-12-26 06:39] LABS: Blood Urea Nitrogen* 21 mg/dL (7-30); Carbon Dioxide* 26 mmol/L (20-32); Creatinine* 1.1 mg/dL (0.5-1.5); Est. Creatinine Clearance* 53.55; Estimated Glomerular Filt Rate 69 ml/min
[2021-12-26 06:40] LABS: Calcium* 9.2 mg/dL (8.4-10.6); Glucose* 142 mg/dL (60-115)
--- NOTE | 2021-12-26 06:59 | W.PM.PODPN ---
Podiatry-PN: Subj Subjective Time Seen by Provider: 06:45 Date Seen: 12/26/21 Interval history: Patient seen bedside with no complaints. No acute events overnight. Progress Note: A&P Assessment and plan (1) S/P transmetatarsal amputation of foot: Problem details: 12/24/2021 Status: Acute (2) Osteomyelitis: Status: Acute Plan Following dressing removal FANY drain was removed. It only had 15 mL out overnight. Sterile dressing was reapplied with posterior splint. I discussed the plan with Elieser. Currently if he is discharged to a TCU in the area the [facility] is planning on hyperbaric oxygen treatment on this week provided he as transportation. From my standpoint discharge to TCU today is reasonable. Discharge instructions are as follows: 1. Heel weight-bearing in splint for transfers only otherwise wheelchair for ambulation 2. Continue to elevate the right leg most of the day and try to avoid extended periods of dangling in a dependent position. 3. Dressings can remain intact and does not need to be changed by TCU. Keep clean and dry. 4. Recommend Augmentin 875mg b.i.d. for 14 days upon discharge. 5. Follow-up with Dr. Ewing at [facility] in [place] on Friday or Friday of next week. Appointment has likely already been made. Exam Narrative: Exam Narrative: Dressing removed. Incision is clean dry and well coapted. There is no drainage. No signs of infection. Minimal edema. No bleeding with removal of drain. Dorsal plantar flaps of excellent capillary fill time appeared viable without all areas. Const: Vital Signs, click to edit/add: Vital Signs - 24 hr 12/25/21 07:00 12/25/21 07:00 12/25/21 11:00 Temperature 98.9 F 98.2 F Pulse Rate [Pulse Oximeter] 93 97 93 Respiratory Rate 20 20 Blood Pressure [Le ft Arm] Blood Pressure [Ri ght Arm] 141/60 H 138/53 L Pulse Oximetry 93 93 Oxygen Delivery Me thod Room Air Room Air Oxygen Flow Rate 0 0 12/25/21 15:00 12/25/21 15:00 12/25/21 19:00 Temperature 98.7 F 98.7 F Pulse Rate [Pulse Oximeter] 88 88 88 Respiratory Rate 18 18 18 Blood Pressure [Le ft Arm] Blood Pressure [Ri ght Arm] 136/54 L 144/71 H Pulse Oximetry 91 91 Oxygen Delivery Me thod Room Air Room Air Oxygen Flow Rate 0 0 12/25/21 23:00 12/25/21 23:00 12/26/21 02:46 Temperature 98.3 F 98.3 F Pulse Rate [Pulse Oximeter] 86 86 80 Respiratory Rate 20 20 20 Blood Pressure [Le ft Arm] 146/63 H Blood Pressure [Ri ght Arm] 137/35 L Pulse Oximetry 90 89 Oxygen Delivery Me thod Room Air Room Air Oxygen Flow Rate 0 Podiatry-PN: Obj Labs Labs: Laboratory Results - last 24 hr 12/25/21 12/25/21 12/26/21 06:02 06:02 05:36 WBC 10.58 10.29 RBC 4.51 4.28 L Hgb 12.5 L 11.9 L Hct 38.0 35.9 L MCV 84 84 MCH 28 28 MCHC 33 33 RDW Coeff of Braeden 14.7 14.7 Plt Count 294 287 Neut % (Auto) 75.3 H 68.7 Lymph % (Auto) 13.4 L 18.4 L [place] % (Auto) 9.5 10.7 Eos % (Auto) 0.7 1.0 Baso % (Auto) 0.5 0.6 Neut # (Auto) 8.00 H 7.08 H Lymph # (Auto) 1.40 1.90 [place] # (Auto) 1.00 H 1.10 H Eos # (Auto) 0.07 0.10 Baso # (Auto) 0.05 0.06 Abs Immat Gran (auto) 0.06 0.06 Sodium 140 Potassium 4.7 Chloride 104 Carbon Dioxide 22 BUN 23 Creatinine 1.0 Estimated Creat Clear 58.90 Estimated GFR 77 Glucose 132 H Calcium 9.3 Total Bilirubin 0.5 AST 23 ALT 22 Alkaline Phosphatase 80 C-Reactive Protein 3.0 H Total Protein 6.6 Albumin 3.9
[2021-12-26 07:00] VITALS: BP 154/68; PULSE 91; RESP 20; TEMP 36.6; O2SAT 91
[2021-12-26] MEDS: LACTOBACILLUS ACIDOPHILUS 1 TABLET 2 TAB PO (08:16)
[2021-12-26] MEDS: METFORMIN ER 500 MG 1000 MG PO (08:16)
[2021-12-26] MEDS: glipiZIDE 5 MG TABLET PO (08:16)
[2021-12-26] MEDS: CLOPIDOGREL 75 MG TABLET PO (08:24)
[2021-12-26] MEDS: ASPIRIN 81 MG TABLET EC PO (08:24)
[2021-12-26] MEDS: FUROSEMIDE 20 MG TABLET PO (08:24)
[2021-12-26] MEDS: METOPROLOL TARTRATE 25 MG TABLET 12.5 MG PO (08:24)
[2021-12-26] MEDS: TAMSULOSIN HCL 0.4 MG CAPSULE PO (08:24)
[2021-12-26] MEDS: DULOXETINE HCL 20 MG CAPSULE DR PO (08:24)
[2021-12-26] MEDS: GABAPENTIN 100 MG CAPSULE PO (08:25)
[2021-12-26] MEDS: LOSARTAN POTASSIUM 50 MG TABLET 25 MG PO (08:25)
--- NOTE | 2021-12-26 09:37 | PC.NURSE ---
Meg called to [employer] [phone]) at [phone].
[2021-12-26 09:40] VITALS: BP 154/68; PULSE 91; RESP 18; TEMP 36.6
--- NOTE | 2021-12-26 11:02 | P.DS_ITS ---
DS: Providers Provider Time Seen by Provider: 09:00 Date Seen: 12/26/21 Date of admission: 12/24/21 19:58 Primary care physician: Austyn Adrian MD Admitting Clinician: Norberto Ewing DPM Consults: 12/24/21 10:40 Consult to Physical Therapy [CONS] Routine Comment: Reason(s) for PT Consult:: Evaluate and Treat Any Restrictions?:: Non Wt Bearing Comment: NWB right leg. Heel weight for transfers Consult to Water Pollution Control Inspector [CONS] Routine Comment: Reason for Consult:: Social Service Consult 12/24/21 19:46 Consult to Occupational Therapy [CONS] Routine Comment: Reason(s) for OT Consult:: Evaluate and Treat Any Restrictions?:: Partial Wt Bearing Comment: non weight bearing on RLE, h/o CVA Attending Physician on discharge: Kristy Guadalupe MD Date of Discharge: 12/26/21 DS: Diagnosis Discharge Diagnosis (1) S/P transmetatarsal amputation of foot: Status: Acute Problem details: 12/24/2021 (2) Osteomyelitis: Status: Acute (3) Infected wound: Status: Acute (4) Cerebrovascular accident (CVA) due to thrombosis of left middle cerebral artery: Status: Chronic (5) Chronic wound of extremity: Status: Chronic (6) Peripheral vascular disease: Status: Chronic Problem details: on plavix (7) COPD (chronic obstructive pulmonary disease): Status: Chronic (8) Atrial fibrillation: Status: Chronic Problem details: Paroxysmal, on ASA (9) Diabetes mellitus type 2, noninsulin dependent: Status: Chronic Problem details: last A1C 7.6 (10) History of hyperbaric oxygen therapy: Status: Chronic (11) At risk for barotrauma due to hyperbaric oxygen therapy: Status: Acute DS: Summary Hospital Course Hospital Course: This is a 76-year-old male who had a transmetatarsal right foot amputation by Dr. Ewing of Podiatry for osteomyelitis. He has had a long history of foot infections and chronic wounds due to comorbidities type 2 diabetes and severe peripheral vascular disease. He has been followed as an outpatient by the wound clinic and treated in the hyperbaric chamber as well. Previous wound cultures have grown out E coli, Corynebacterium, stenotrophomonas, and most recently Enterococcus which was sensitive to ampicillin. He also has a history of CVA which has resulted in poor balance, limiting his ability discharge home. He had a drain postoperatively which was removed today. He has had no intraoperative or postoperative complications. He is doing well and in stable condition today for discharge. I discussed code status with him today and he would like to be a full code. He is discharged to [address] [place] [address] for rehab. Time Spent with Patient Time attestation: Total time spent providing and/or coordinating discharge services: Exam Narrative: Exam Narrative: General: No acute distress. Awake, alert, oriented x3. No pallor. No jaundice. Oropharynx: Clear. Mucous membranes moist. Cardiovascular: Regular rate and rhythm. No murmurs, gallops, or rubs. Respiratory: No respiratory distress. Clear to auscultation bilaterally. No wheezes or crackles. Abdomen: Bowel sounds present. Soft, nondistended, nontender. Extremities: No pedal edema. Right foot is status post partial amputation. Bandages are clean, dry and intact. Drain was pulled this morning is not present on my exam. Const: Vital Signs, click to edit/add: Vital Signs - 24 hr 12/25/21 15:00 12/25/21 15:00 12/25/21 19:00 Temperature 98.7 F 98.7 F Pulse Rate Pulse Rate [Pulse Oximeter] 88 88 88 Respiratory Rate 18 18 18 Blood Pressure Blood Pressure [Le ft Arm] Blood Pressure [Ri ght Arm] 136/54 L 144/71 H Pulse Oximetry 91 91 Oxygen Delivery Me thod Room Air Room Air Oxygen Flow Rate 0 0 12/25/21 23:00 12/25/21 23:00 12/26/21 02:46 Temperature 98.3 F 98.3 F Pulse Rate Pulse Rate [Pulse Oximeter] 86 86 80 Respiratory Rate 20 20 20 Blood Pressure Blood Pressure [Le ft Arm] 146/63 H Blood Pressure [Ri ght Arm] 137/35 L Pulse Oximetry 90 89 Oxygen Delivery Me thod Room Air Room Air Oxygen Flow Rate 0 12/26/21 07:00 12/26/21 07:00 12/26/21 09:40 Temperature 97.9 F 97.9 F Pulse Rate 91 Pulse Rate [Pulse Oximeter] 91 91 Respiratory Rate 20 20 18 Blood Pressure 154/68 H Blood Pressure [Le ft Arm] Blood Pressure [Ri ght Arm] 154/68 H Pulse Oximetry 91 Oxygen Delivery Me thod Room Air Oxygen Flow Rate 0 DS: Data Data Completed and Pending Completed studies during hospitalization: Ordering Physician: Anna Anderson M.D. Date of Service: 12/14/21 Procedure(s): foot RT wo con Accession Number(s): [id number] cc: Austyn Adrian M.D.; Anna Anderson M.D.~ For Patients: As a result of the Cures Act, medical imaging exams and procedure reports are released immediately into your electronic medical record. You may view this report before your referring provider. If you have questions, please contact your health care provider. EXAM: MRI of the right foot without contrast. CLINICAL INDICATION: Chronic fore foot wound. PRIOR SURGERY: Partial 1st toe amputation. COMPARISON PLAIN FILMS: None available. COMPARISON CROSS-SECTIONAL IMAGING STUDIES: None available. TECHNICAL: Axial, sagittal and coronal T1, PD and STIR images. 1.5 Lizzy MR scanner. FINDINGS: Postsurgical change of 1st toe amputation through the proximal 1st metatarsal. Bone marrow edema in the residual 1st metatarsal base with grossly preserved T1 hyperintense signal. Erosion or resection of the distal aspect of the 5th proximal phalanx with T1 hypointense bone marrow signal (see series 6, image 19 and 20). Second through 5th toe hammertoe deformities. Subluxation of 2nd and 3rd MTP joints. T1 hyperintense bone marrow signal is grossly preserved throughout the remainder of the bones in the forefoot and visualized midfoot. Severe degenerative change at the tarsometatarsal joints likely neuropathic arthropathy. Mild scattered bone marrow edema at tarsometatarsal articulations due to degenerative change. Diffuse subcutaneous soft tissue swelling and induration throughout the foot. No definite organized fluid collection within limits of noncontrast exam. Atrophy of the intrinsic musculature of the foot with STIR hyperintense signal most likely due to denervation. No definite evidence of tendon injury. IMPRESSION: 1. Erosion or resection of the 5th proximal phalanx distal aspect with marrow replacement. If no prior surgery the findings would be consistent with osteomyelitis. 2. Amputation of the 1st toe through the proximal metatarsal. Reactive bone marrow edema in the residual metatarsal base with no evidence of osteomyelitis. 3. Diffuse soft tissue swelling and soft tissue induration throughout the forefoot correlate for cellulitis. No evidence of abscess within limits of noncontrast exam. 4. 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 5. The flexion deformities and subluxations in the 2nd through 5th toes. 6. Intrinsic foot muscle atrophy with edema most likely due to denervation. Dictated by Wesley Bui MD @ 12/17/2021 11:22:34 AM (Electronically Signed) Ordering Physician: Norberto Ewing D.P.M. Date of Service: 12/24/21 Procedure(s): XR foot RT 2V Accession Number(s): [id number] cc: Austyn Adrian M.D.; Norberto Ewing D.P.M.~ For Patients: As a result of the Century Cures Act, medical imaging exams and procedure reports are released immediately into your electronic medical record. You may view this report before your referring provider. If you have questions, please contact your health care provider. Indication: right transmetatarsal amputation foot Technique: Two fluoroscopic images of the right foot. Fluoroscopic time 16.4 seconds. IMPRESSION: Fluoroscopic guidance for transmetatarsal amputation. Dictated by Kyrie Wilder MD @ 12/25/2021 9:15:03 AM (Electronically Signed) Labs on day of discharge: Labs from last 24 hours 12/26/21 12/26/21 05:36 05:36 WBC 10.29 RBC 4.28 L Hgb 11.9 L Hct 35.9 L MCV 84 MCH 28 MCHC 33 RDW Coeff of Braeden 14.7 Plt Count 287 Neut % (Auto) 68.7 Lymph % (Auto) 18.4 L [place] % (Auto) 10.7 Eos % (Auto) 1.0 Baso % (Auto) 0.6 Neut # (Auto) 7.08 H Lymph # (Auto) 1.90 [place] # (Auto) 1.10 H Eos # (Auto) 0.10 Baso # (Auto) 0.06 Abs Immat Gran (auto) 0.06 Imm/Tot Granulo (auto) Pending Sodium 139 Potassium 4.0 Chloride 103 Carbon Dioxide 26 BUN 21 Creatinine 1.1 Estimated Creat Clear 53.55 Estimated GFR 69 Glucose 142 H Calcium 9.2 Discharge Plan Discharge Disposition: Xfer Other Date of Admission: 12/24/21 19:58 Attending Provider on Discharge: Kristy Guadalupe Consulting Providers: Norberto Ewing Primary Care Provider: Austyn Adrian Condition: Improved Anticipated Discharge Date/Time: 12/26/21 13:00 Discharge Medications: New insulin aspart U-100 [Novolog Flexpen U-100 Insulin] 100 unit/mL (3 mL) Insulin Pen See Rx Instructions .ROUTE .COMPLEX Qty: 15 0RF Rx Instructions: Blood Glucose 150 or less No coverage Blood Glucose 151-200 1 unit Blood Glucose 201-250 2 units Blood Glucose 251-300 3 units Blood Glucose 301-350 4 units Blood Glucose 351 to 400 5 units Blood Glucose 401 and greater 6 units and recheck in 1 hour Lactobacillus acidophilus 0.5 mg (100 million cell) Tablet 1 mg PO TIDWM Qty: 90 0RF oxycodone 5 mg Tablet 2.5 - 5 mg PO Q4H MDD 20 mg PRN (Reason: Pain) Qty: 10 0RF amoxicillin-pot clavulanate 875-125 mg tablet 1 tab PO BID Qty: 14 0RF Continued glipizide 10 mg tablet 5 mg PO DAILY Label Comments: TAKE ONE-HALF TABLET BY MOUTH EVERY DAY ammonium lactate 12 % lotion 1 applic topical DAILY Label Comments: APPLY TO FEET ONCE DAILY atorvastatin 40 mg tablet 40 mg PO DAILY Label Comments: TAKE ONE TABLET BY MOUTH EVERY DAY gabapentin 100 mg capsule 100 mg PO TID Label Comments: TAKE ONE CAPSULE BY MOUTH THREE TIMES A DAY furosemide 40 mg tablet 20 mg PO DAILY Label Comments: TAKE ONE-HALF TABLET BY MOUTH EVERY DAY losartan 25 mg tablet 25 mg PO DAILY Label Comments: TAKE ONE TABLET BY MOUTH EVERY DAY metformin 500 mg tablet extended release 24 hr 1,000 mg PO BIDWM Label Comments: TAKE TWO TABLETS BY MOUTH EVERY DAY AT LUNCH CAND TWO TABLETS AT SUPPER icosapent ethyl 1 gram capsule 2 g PO BIDWM Label Comments: TAKE TWO CAPSULES BY MOUTH TWICE A DAY WITH MEALS metoprolol tartrate 25 mg tablet 12.5 mg PO BID Label Comments: TAKE ONE-HALF TABLET BY MOUTH TWICE A DAY tamsulosin 0.4 mg capsule 0.4 mg PO DAILY Label Comments: TAKE ONE CAPSULE BY MOUTH EVERY DAY clopidogrel 75 mg tablet 75 mg PO DAILY Label Comments: TAKE ONE TABLET BY MOUTH EVERY DAY pantoprazole 40 mg tablet,delayed release (DR/EC) 40 mg PO DAILY Label Comments: TAKE ONE TABLET BY MOUTH EVERY MORNING BEFORE BREAKFAST Santyl 250 unit/gram ointment 1 applic topical DAILY Label Comments: APPLY RENÉ THICK AMOUNT TO WOUNDS duloxetine 20 mg capsule,delayed release(DR/EC) 20 mg PO DAILY Label Comments: TAKE ONE CAPSULE BY MOUTH EVERY DAY albuterol sulfate 90 mcg/actuation HFA aerosol inhaler 2 puff inhalation Q4H Label Comments: INHALE TWO PUFFS BY MOUTH EVERY 4 HOURS NEEDED FOR WHEEZING OR SHORTNESS OF BREATH aspirin 81 mg capsule 81 mg PO DAILY latanoprost 0.005 % drops 1 drp ophthalmic (eye-right) HS Discontinued amoxicillin-pot clavulanate [Augmentin] 500-125 mg tablet 1 tab PO Q12H Qty: 14 0RF No Action (DME) Accu-Chek Elise Plus test strp Strip See Rx Instructions .ROUTE .MEDSUPPLY Qty: 10 Label Comments: TEST BLOOD SUGAR ONCE DAILY Rx Instructions: As directed Discharge Orders: Discharge Order (Routine); Ordered 12/24/21 Ordered By: Norberto Ewing Additional Instructions: Code Status: FULL Physical Therapy: Evaluate and Treat Occupational Therapy: Evaluate and Treat Speech Therapy: Evaluate and Treat W[facility] Center hyperbaric oxygen treatment on this week provided he as transportation. 1. Heel weight-bearing in splint for transfers only otherwise wheelchair for ambulation 2. Continue to elevate the right leg most of the day and try to avoid extended periods of dangling in a dependent position. 3. Dressings can remain intact and does not need to be changed by residential facility. Keep clean and dry. 4. Follow-up with Dr. Ewing at [facility] in [place] on Friday or Friday of next week. Activity Level: Other Activity Detail: Heel weight-bearing in splint for transfers only otherwise wheelchair for ambulation Discharge Diet: Diabetic Follow Up Appointments: Austyn Adrian MD [Primary Care Provider] - Forms: MyHealth Info Instructions Hospital Course: This is a 76-year-old male who had a transmetatarsal right foot amputation by Dr. Ewing of Podiatry for osteomyelitis. He has had a long history of foot infections and chronic wounds due to comorbidities type 2 diabetes and severe peripheral vascular disease. He has been followed as an outpatient by the wound clinic and treated in the hyperbaric chamber as well. Previous wound cultures have grown out E coli, Corynebacterium, stenotrophomonas, and most recently Enterococcus which was sensitive to ampicillin. He also has a history of CVA which has resulted in poor balance, limiting his ability discharge home. He had a drain postoperatively which was removed today. He has had no intraoperative o r postoperative complications. He is doing well and in stable condition today for discharge. I discussed code status with him today and he would like to be a full code. He is discharged to [address] [place] [address] for rehab.
--- NOTE | 2021-12-26 13:56 | PC.NURSE ---
d/c instructions reviewed with patient, instructed to give d/c packet to nurses at [facility] upon arrival. IV removed. pt denied any further questions at d/c. Belongings form reviewed and signed. pt d/c'd at 1305 via [facility] to [address] [place] [address]. Spouse to follow behind to facility.
--- NOTE | 2021-12-26 14:40 | PC.NURSE ---
Called [facility] and spoke with Nurse Cardoso to update that the patient needs to have blood sugar checks 4 times a day per Dr. Guadalupe.
== END 2021-12-26 13:05 | DRG 617 ==
LOC: OR 19:59 → MEDSURG 12-25 05:23
PROVIDERS: Family Medicine; Admitting Provider Podiatrist; PCP Family Medicine; Visit Provider Podiatrist
PROC: 0Y6M0Z9 Detachment at Right Foot, Partial 1st Ray, Open Approach (ICD-10-PCS; principal; 2021-12-24 10:45)
DX: E11.69 Type 2 diabetes mellitus with other specified complication (principal); L97.416 Non-pressure chronic ulcer of right heel and midfoot with bone involvement without evidence of necrosis; M86.171 Other acute osteomyelitis, right ankle and foot; B95.2 Enterococcus as the cause of diseases classified elsewhere; E11.621 Type 2 diabetes mellitus with foot ulcer; E11.51 Type 2 diabetes mellitus with diabetic peripheral angiopathy without gangrene; J44.9 Chronic obstructive pulmonary disease, unspecified; I48.0 Paroxysmal atrial fibrillation; I11.9 Hypertensive heart disease without heart failure; N40.0 Benign prostatic hyperplasia without lower urinary tract symptoms; G47.33 Obstructive sleep apnea (adult) (pediatric); K21.9 Gastro-esophageal reflux disease without esophagitis; I69.398 Other sequelae of cerebral infarction; R26.89 Other abnormalities of gait and mobility; E78.5 Hyperlipidemia, unspecified; E78.1 Pure hyperglyceridemia
CPT/HCPCS: 01480; 36415; 73620; 76000; 80048; 80053; 82947; 82962; 85025; 86140; 88305; 88311; 97162; 97165; 97530; 97535; 99100; A9270; J0295; J0690; J2250; J2405; J2704; J3010; J3490; J7120

== ENCOUNTER 2022-01-16 09:29 | Outpatient (CLI) | payer MEDICARE, OTHER, SELFPAY | END 2022-01-16 09:30 | disposition home or self-care (01) | LOC: WOUND 09:30 | PROVIDERS: PCP Family Medicine; Visit Provider Surgery | DX: E11.621 Type 2 diabetes mellitus with foot ulcer (principal); L97.416 Non-pressure chronic ulcer of right heel and midfoot with bone involvement without evidence of necrosis; Z79.84 Long term (current) use of oral hypoglycemic drugs | CPT/HCPCS: 99213 ==

== ENCOUNTER 2022-01-23 09:44 | Outpatient (CLI) | payer MEDICARE, OTHER, SELFPAY | END 2022-01-23 09:45 | disposition home or self-care (01) | LOC: WOUND 09:45 | PROVIDERS: PCP Family Medicine; Visit Provider Surgery | DX: E11.621 Type 2 diabetes mellitus with foot ulcer (principal); L97.416 Non-pressure chronic ulcer of right heel and midfoot with bone involvement without evidence of necrosis; Z79.84 Long term (current) use of oral hypoglycemic drugs | CPT/HCPCS: 99213 ==